=== PATIENT | male | born 2000 | race Caucasian/White ===

== ENCOUNTER 2024-03-25 12:50 | Emergency (ER) | payer BC ==
[~2024-03-25] VITALS: Ht 180.3 cm; Wt 77.1 kg
[2024-03-25] MEDS ORDERED: MEDROL DOSEPAK4 MG PO (13:21)
[2024-03-25] MEDS ORDERED: CLINDAMYCIN HC300 MG PO (13:21)
== END 2024-03-25 13:24 | disposition home or self-care (01) ==
LOC: ED 12:50
DX: J02.9 Acute pharyngitis, unspecified (principal); Z87.891 Personal history of nicotine dependence

== ENCOUNTER 2024-04-02 19:27 | Emergency (ER) | payer BC ==
[~2024-04-02] VITALS: Ht 180.3 cm; Wt 77.1 kg
[~2024-04-02 19:27] MED LIST: CLINDAMYCIN HC300 MG PO; MEDROL DOSEPAK4 MG PO
[2024-04-02] MEDS ORDERED: diphenhydrAMINE hydrochloride 25 MG CAP PO ONE (19:55)
[2024-04-02] MEDS ORDERED: methylPREDNISolone sod succ 125 MG VIAL IM ONE (19:55)
== END 2024-04-02 19:59 | disposition home or self-care (01) ==
LOC: ED 19:27
DX: R21 Rash and other nonspecific skin eruption (principal); T36.8X5A Adverse effect of other systemic antibiotics, initial encounter; Y92.009 Unspecified place in unspecified non-institutional (private) residence as the place of occurrence of the external cause

== ENCOUNTER 2024-06-17 16:36 | Emergency (ER) | payer BC ==
[~2024-06-17] VITALS: Ht 180.3 cm; Wt 74.8 kg
[2024-06-17] MEDS ORDERED: ELIMITE 5%60 GM T (16:55)
== END 2024-06-17 16:58 | disposition home or self-care (01) ==
LOC: ED 16:36
DX: R21 Rash and other nonspecific skin eruption (principal)